=== PATIENT | female | born 1975 | race Caucasian/White ===

== ENCOUNTER 2021-07-22 13:57 | Emergency (ER) | payer MEDICAID | END 2021-07-22 17:48 | disposition home or self-care (01) | LOC: FER 13:57 | DX: S62.635A Displaced fracture of distal phalanx of left ring finger, initial encounter for closed fracture (principal); W20.8XXA Other cause of strike by thrown, projected or falling object, initial encounter; Y92.009 Unspecified place in unspecified non-institutional (private) residence as the place of occurrence of the external cause | CPT/HCPCS: 73130 ==

== ENCOUNTER 2021-09-29 14:00 | Emergency (ER) | payer OTHER ==
[2021-09-29 15:20] LABS: BASOPHIL 0.3 % (0-2); EOSINOPHIL 0.5 % (0-5); HCT 41.5 % (37.0-47.0); HGB 13.8 g/dl (12.5-16.0); MCH 29.2 pg (25.0-31.0); MCHC 33.3 g/dL (32.0-36.0); MCV 87.7 fL (78.0-100.0); MONOCYTE 4.5 % (0-12); MPV 9.7 fL (6.0-9.5); NEUTROPHIL 66.3 % (41-80); NRBC 0; PLT 300 K/uL (150-400); RBC 4.73 M/uL (4.20-5.40); RDW 13.2 % (11.5-14.0); WBC 10.6 K/uL (4.0-10.5)
[2021-09-29 15:43] LABS: ALBUMIN 4.1 g/dL (3.4-5.0); BILIRUBIN - TOTAL 0.4 mg/dL (0.2-1.0); BUN/CREAT RATIO (CALC) 18.7 RATIO; CREATININE 0.91 mg/dL (0.51-0.95); GLOBULIN (CALCULATION) 3.5 g/dL; POTASSIUM 4.1 mmol/L (3.5-5.1); TOTAL PROTEIN 7.6 g/dL (6.4-8.2)
[2021-09-29 17:12] LABS: MAGNESIUM 2.3 mg/dL (1.8-2.4)
== END 2021-09-29 18:21 | disposition home or self-care (01) ==
LOC: FER 14:00
PROVIDERS: Emergency Medicine; Physician Assistant
DX: S00.12XA Contusion of left eyelid and periocular area, initial encounter (principal); Z88.8 Allergy status to other drugs, medicaments and biological substances; Z79.82 Long term (current) use of aspirin; W19.XXXA Unspecified fall, initial encounter
CPT/HCPCS: 36415; 70450; 70486; 71045; 80053; 83735; 84443; 84484; 85025; 93005; J7030